=== PATIENT | female | born 1995 | race Caucasian/White ===

== ENCOUNTER 2020-12-10 12:04 | Outpatient (CLI) | payer OTHER ==
[2020-12-11 13:41] LABS: HIV AG/AB 4TH GEN NON-REACTIVE (NON-REACTIVE)
== END 2020-12-10 12:05 | disposition home or self-care (01) ==
LOC: LAB 12:04
PROVIDERS: ATTEND Advanced Practice Midwife
DX: Z34.90 Encounter for supervision of normal pregnancy, unspecified, unspecified trimester (principal)
CPT/HCPCS: 36415; 84443; 86787; 87389

== ENCOUNTER 2021-01-01 07:00 | Outpatient (CLI) | payer OTHER | END 2021-01-01 23:59 | disposition home or self-care (01) | LOC: LAB.R 07:00 | PROVIDERS: ATTEND Nurse Practitioner Obstetrics & Gynecology | DX: Z36.85 Encounter for antenatal screening for Streptococcus B (principal) | CPT/HCPCS: 87797 ==

== ENCOUNTER 2021-01-23 17:10 | Outpatient (CLI) | payer OTHER ==
[2021-01-23 17:57] VITALS: BP 138/88
--- NOTE | 2021-01-24 10:02 | PROVIDER PROGRESS NOTE ---
- HPI Chief Complaint: Labor Check Current : Current EDU 01/27/21 Gestation 39 Weeks and 3 Days 1 Para 0 Vital Signs Temperature 36.5 C 01/23/21 17:45 Heart Rate 94 01/23/21 17:45 Respiratory Rate 18 01/23/21 17:45 Blood Pressure 138/88 H 01/23/21 17:45 Temperature 36.5 C 01/23/21 17:45 Heart Rate 94 01/23/21 17:45 Respiratory Rate 18 01/23/21 17:45 Blood Pressure 138/88 H 01/23/21 17:45 O2 Saturation - Procedures OB Procedure Performed: NST Diagnosis/Indication for NST: Other NST Procedure: NST Procedure Start Date 01/23/21 Start Time 17:15 Stop Time 18:10 Vibroacoustic Stimulation Used No Patient States Movement Yes Service Date of procedure: 01/23/21 - Plan Plan: Jessica presents to [facility] with c/o contractions every 5-7 minutes lasting 30 seconds for the past 20 hours. She states the pain is mostly in her back. She denies vaginal bleeding or leakage of fluid. She reports +FM. She is coping well with contractions but did not sleep well at all last night. O: FHR baseline 135 however initially it was difficult to assess secondary to prolonged accelerations. Prolonged monitoring initiated and FHR baseline settled to 135 with moderate variability, + accels, no decels Contractions palpate mild every 7 minutes with soft resting tone. SVE 1/90/-2, posterior. Vertex. NST performed 01/23/2021 NST read 01/23/2021 NST reactive. FHR baseline 135, moderate variability, + accels, no decels A: 25yo @ 39.3wks gestation Prodromal labor FHR Category I P: Pt given option to proceed with elective IOL, be discharged home with precautions, or given IV medication to rest while inpatient. Pt elects to take OTC unisom at home and return if contractions increase in frequency and intensity or if she experiences other warning s/sx. Pt verbalized understanding and agrees to above plan. She denies further questions or concerns at this time. Has emergency contact information. FINAL DIAGNOSIS: False labor >37wks gestation
== END 2021-01-23 18:20 | disposition home or self-care (01) ==
LOC: WFO 17:10 → FBP 17:12 → WFO 18:20
PROVIDERS: ATTEND Nurse Practitioner Obstetrics & Gynecology
DX: O47.1 False labor at or after 37 completed weeks of gestation (principal); Z3A.39 39 weeks gestation of pregnancy
CPT/HCPCS: 99213

== ENCOUNTER 2021-01-24 18:31 | Inpatient (IN) | payer OTHER ==
[2021-01-24] MEDS ORDERED: TRANEXAMIC ACID IN NACL 1,000 MG/100 ML BAG IV PRN (19:13)
[2021-01-24] MEDS ORDERED: CARBOPROST TROMETHAMINE 250 MCG/ML AMP IM PRN (19:13)
[2021-01-24] MEDS ORDERED: LIDOCAINE-MPF 1% 30 ML VIAL ID PRN (19:13)
[2021-01-24] MEDS ORDERED: METHYLERGONOVINE 0.2 MG/ML VIAL IM PRN (19:13)
[2021-01-24] MEDS ORDERED: SODIUM CHLORIDE FLUSH 0.9% 10 ML SYRINGE IVP PRN (19:13)
[2021-01-24] MEDS ORDERED: miSOPROStoL 200 MCG TABLET BC PRN (19:13)
[2021-01-24] MEDS ORDERED: OXYTOCIN/SODIUM CHLORIDE 500 ML IV PRN (19:13)
[2021-01-24] MEDS ORDERED: OXYTOCIN 10 UNIT/ML VIAL IM PRN (19:13)
--- NOTE | 2021-01-24 19:20 | HISTORY & PHYSICAL EXAMINATION ---
Admit History - Visit Reason Visit Reason: Contractions - : 1 Parity: 0 Premature: 0 Ectopic: 0 : 0 Care: positive: [facility] Risk/History: positive: None Complications This : positive: None Smoking Status: Never smoker - Mother's Labs Mother's Blood Type: positive: A Mother's RH: positive: Positive GBS: positive: Group B Step Negative Rubella Status: positive: Immune Review of Systems - Constitutional Constitutional: reports: Fatigue. denies: Chills, Malaise - Eyes Eyes: denies: Blurred vision, Spots in vision, Dipolpia - Cardiovascular Cariovascular: denies: Irregular heart rate, Chest pain, Edema - Respiratory Respiratory: denies: Cough, SOB at rest - Gastrointestinal Gastrointestinal: denies: Change in bowel habits - Musculoskeletal Musculoskeletal: reports: Back pain - Integumentary Integumentary: denies: Rash, Pruritis - Neurological Neurological: denies: Headache Physical - Abdominal Exam Vital Signs: Temp Pulse Resp BP Pulse Ox 36.7 C 85 18 138/94 H 99 01/24/21 18:41 01/24/21 18:41 01/24/21 18:41 01/24/21 18:41 01/24/21 18:41 Contraction Intensity: positive: Mild to moderate Uterine Resting Tone: positive: Soft - Monitoring Heart Rate Baseline: 135 Strip Review: positive: Category I - Presentation Presentation: positive: Vertex - Vaginal Exam Membranes: positive: Membranes intact Dilation (in cm): 3 Effacement (%): 95 Station: positive: -2 Cervical Position: positive: Midposition - Speculum Exam Speculum Exam Performed: positive: No Plan for Labor - Plan For Labor I expect patient to be DC'd or transferred within 96 hours.: Yes Plan for Labor: HPI: This 25yo @ 39.4wks gestation by LMP c/w 13.0wks U/S presents to [facility] with c/o irregular contractions which have increased in intensity and duration over the past 24 hours. She states she has been unable to sleep for 36 hours and she is feeling very exhausted. She wishes to have her labor augmented and she requests an epidural for pain management. Her Greg is supportive at the bedside. She has been a patient of [facility] since her transfer of care form the [facility] and [place], [place]. They had struggled with infertility but discovered they were already at their first visit at the fertility clinic. She is also noted to have mild hypothyroidism for which she takes 50mcg Synthroid daily. Her labs throughout have remained WNL. Medications: PNV, Synthroid 50mcg daily Allergies: Sulfa (severe), penicillin (moderate) PMHx: Infertility, PCOS, hypothyroidsim, anxiety/depression Surgical Hx: none Social Hx: Never smoker. No ETOH or IVDA. She is a college student. Greg is [employer]. Family Hx: no significant course: Initial U/S: at 13.0wks c/w LMP for LATOSHA 01/27/2021 Hypothyroidism- TSH - 1.87, redraw at 33.1wks 1.37 A pos/Rubella immune VZV- non immune vax pp Gentic testing: Serum AFP neg FAS: Posterior placenta. 3VC, ELVIRA wnl. *marginal corn insertion*, efw 33% Glucola- 130 Flu: 08/30/2020 TDAP : 12/10/2020 GBS at 36.2 weeks - neg HSV: denies self and partner Breast pump Rx : already obtained MOD: . Greg. Baby Girl- Nina. Desires epidural pp contraception: condoms. Has hx PCOS and would like to go without hormones. Then [facility] Jul. PAP: 06/17/19- nilm Physical exam: Normocephalic, atraumatic Heart RRR w/o M/G/R Lungs CTAB Abdomen gravid, soft, nontender EFW 3800g SVE 3/95/-2, midposition. Vertex. Membranes intact. Bilateral LE's trace edema bilaterally Mood is good however appears tired. Assessment: 25yo @ 39.4wks gestation by LMP c/w 13.0wk U/S Early labor GBS neg FHR Category I Plan: Admit for active management. AROM for augmentation of labor with next SVE. Notify anesthesia for placement of epidural. Continuous monitoring. Repeat SVE 4 hours after AROM and if unchanged will initiate pitocin for augmentation of labor. Anticipate . Pt, partner and labor RN at the bedside all verbalize understanding and agree to above plan. They deny further questions or concerns at this time.
[2021-01-24] MEDS ORDERED: ZOLPIDEM 5 MG TABLET PO PRN (19:38)
[2021-01-24 20:01] LABS: BASOPHILS % (AUTO) 0.3 %; EOSINOPHILS # (AUTO) 0.1 10^3/uL (0.0-0.7); EOSINOPHILS % (AUTO) 0.4 %; HGB - HEMOGLOBIN 12.9 g/dL (12.0-16.0); LYMPHOCYTES # (AUTO) 2.5 10^3/uL (1.5-3.5); LYMPHOCYTES % (AUTO) 18.9 %; MEAN CORPUSCULAR HEMOGLOBIN 27.9 pg (27.0-31.0); MEAN CORPUSCULAR HGB CONC 32.3 g/dL (32.0-36.0); MEAN CORPUSCULAR VOLUME 86.4 fL (81.0-99.0); MONOCYTES # (AUTO) 0.8 10^3/uL (0.0-1.0); MONOCYTES % (AUTO) 6.3 %; NEUTROPHILS # (AUTO) 9.6 10^3/uL (1.5-6.6); NEUTROPHILS % (AUTO) 73.3 %; PLT - PLATELET COUNT 217 10^3/uL (130-450); RED BLOOD COUNT 4.63 10^6/uL (4.20-5.40); RED CELL DISTRIBUTION WIDTH 14.6 % (12.0-15.0); WHITE BLOOD COUNT 13.1 x10^3/uL (4.8-10.8)
[2021-01-24] MEDS: LACTATED RINGERS 1,000 ML IV SCH ×2 (20:09→22:36)
[2021-01-24] MEDS ORDERED: fentaNYL 100 MCG/2 ML VIAL ONE (20:21)
[2021-01-24] MEDS ORDERED: BUPIVACAINE 0.25% PF 10 ML VIAL ONE (20:21)
[2021-01-24] MEDS ORDERED: ROPIVACAINE 0.2% 200 MG/100 ML BAG EP ONE (20:21)
[2021-01-24] MEDS ORDERED: diphenhydrAMINE INJ 50 MG/ML VIAL IVP PRN (21:07)
[2021-01-24] MEDS ORDERED: METOCLOPRAMIDE 10 MG/2 ML VIAL IVP PRN (21:07)
[2021-01-24] MEDS ORDERED: ONDANSETRON 4 MG/2 ML VIAL IVP PRN (21:07)
[2021-01-24] MEDS ORDERED: NALBUPHINE 10 MG/ML AMP IVP PRN (21:07)
[2021-01-24] MEDS ORDERED: ROPIVACAINE 0.2% 200 MG/100 ML BAG EP PRN (21:07)
[2021-01-24] MEDS ORDERED: NALOXONE 0.4 MG/ML VIAL IVP PRN (21:07)
[2021-01-24] MEDS ORDERED: ePHEDrine 50 MG/ML VIAL IVP PRN (21:07)
--- NOTE | 2021-01-24 21:07 | ANESTHESIA ---
Pre-Anesthesia VS, & Labs - Diagnosis active labor - Procedure labor epidural Vital Signs: Temp Pulse Resp BP Pulse Ox 37.0 C 80 16 127/77 99 01/24/21 19:42 01/24/21 19:42 01/24/21 19:42 01/24/21 19:42 01/24/21 18:41 Height: 5 ft 5 in Weight (kg): 72.575 kg Body Mass Index: 26.6 BMI Classification: Overweight - Is Patient ?: Yes - Lab Results Current Lab Results: Laboratory Tests 01/24/21 19:45: Blood Type A POSITIVE, Antibody Screen NEGATIVE 01/24/21 19:45: WBC 13.1 H, RBC 4.63, Hgb 12.9, Hct 40.0, MCV 86.4, MCH 27.9, MCHC 32.3, RDW 14.6, Plt Count 217, MPV 12.0 H, Neut # (Auto) 9.6 H, Lymph # (Auto) 2.5, Marshall # (Auto) 0.8, Eos # (Auto) 0.1, Baso # (Auto) 0.0, Absolute Nucleated RBC 0.00, Nucleated RBC % 0.0 Lab results reviewed: Yes Fish Bones: 01/24/21 19:45 Home Medications and Allergies Active Medications Carboprost Tromethamine (Carboprost Tromethamine 250 Mcg/Ml Amp) 250 mcg IM Q15M PRN PRN Reason: Step 4: Hemorrhage protocol Stop: 01/29/21 19:13 Lactated Ringer's (Lr) 1,000 mls @ 150 mls/hr IV .Q6H40M ANALY Last Admin: 01/24/21 20:09 Dose: 150 mls/hr Documented by: Oxytocin/Sodium Chloride (Pitocin/Sodium Chloride) 500 mls @ 999 mls/hr IV PRN PRN; Protocol PRN Reason: POST- HEMORR PREVENTION Stop: 01/29/21 19:13 Tranexamic Acid (Tranexamic 1,000 Mg/100ml-Nacl) 1,000 mg in 100 mls @ 600 mls/hr IV .ONCE PRN PRN Reason: EBL >1200mL and within 3hr Stop: 01/29/21 19:13 Lidocaine HCl (Lidocaine-Mpf 1% 30 Ml Vial) 30 ml ID .ONCE PRN PRN Reason: PERINEAL REPAIR Stop: 01/29/21 19:13 Methylergonovine Maleate (Methylergonovine 0.2 Mg/Ml Vial) 0.2 mg IM .ONCE PRN PRN Reason: Step 2: Hemorrhage protocol Stop: 01/29/21 19:13 Misoprostol (Misoprostol 200 Mcg Tablet) 800 mcg BC .ONCE PRN PRN Reason: Step 3: Hemorrhage protocol Stop: 01/29/21 19:13 Ondansetron HCl (Ondansetron 4 Mg/2 Ml Vial) 4 mg IVP Q4H PRN PRN Reason: Nausea / Vomiting Oxytocin (Oxytocin 10 Unit/Ml Vial) 10 unit IM .ONCE PRN PRN Reason: Step one: If no IV access Stop: 01/29/21 19:13 Sodium Chloride (Sodium Chloride Flush 0.9% 10 Ml Syringe) 10 ml IVP PRN PRN PRN Reason: NEEDED PER PROVIDER ORDERS Sodium Chloride (Sodium Chloride Flush 0.9% 10 Ml Syringe) 10 ml IVP 0100,0900,1700 ANALY Zolpidem Tartrate (Zolpidem 5 Mg Tablet) 5 mg PO QPM PRN PRN Reason: Insomnia Allergies/Adverse Reactions: Allergies Allergy/AdvReac Type Severity Reaction Status Date / Time Penicillins Allergy Unknown Unknown Verified 01/24/21 19:53 Sulfa (Sulfonamide Allergy Unknown Verified 01/24/21 19:54 Antibiotics) Anes History & Medical History - Anesthetic History Anesthesia Complications: reports: No previous complications Family history of Anesthesia Complications: Denies Family history of Malignant Hyperthermia: Denies - Medical History Smoking Status: Never smoker - Obstetrical History : 1 Parity: 0 Events: reports: None Complications: reports: None Exam General: Alert, Oriented x3, Cooperative, No acute distress Plan Anesthesia Type: Epidural Consent for Procedure(s) Verified and Reviewed: Yes Code Status: Attempt Resuscitation ASA classification: 2-Mild systemic disease Is this case an emergency?: No
[2021-01-25] MEDS ORDERED: SODIUM CHLORIDE FLUSH 0.9% 10 ML SYRINGE IVP SCH (01:00)
[2021-01-25] MEDS: ONDANSETRON 4 MG/2 ML VIAL IVP PRN ×2 (01:21→05:33)
--- NOTE | 2021-01-25 02:58 | PROVIDER PROGRESS NOTE ---
Labor Progress Note - Uterine Monitoring Uterine Monitoring Mode: positive: External toco Contraction Frequency (min/apart): 3-8 Contraction Intensity: positive: Strong Uterine Resting Tone: positive: Soft - Monitoring Monitor Mode: positive: External ultrasound Heart Rate Baseline: 135 Heart Rate Variability: positive: Moderate (6-25 bmp) Accelerations: positive: Present, 15x15 Decelerations: positive: Early, Variable, Intermittent (<50% x20 min) Strip Review: positive: Category II - Vaginal Exam Dilation (in cm): complete Effacement (%): 100 Station: -1 - Labor Progress Note Labor Progress Note/Additional Text: S: Patient feeling completely numb with epidural in place and states she is not feeling any discomfort at all. She has been able to get some sleep but is still tired. She is feeling intermittently shaky with epidural and states this has not been helpful when trying to sleep. Her partner is supportive at the bedside. O: SVE c/c/-1, Vertex. FHR baseline 135, moderate variability, rare variable deceleration Contractions q 3-8 min with soft resting tone. A: 25yo @ 39.5wks gestation Active labor Complete dilatation x 2 hours with irregular contraction pattern and frequency FHR Category II - overall reassuring P: Continuous monitoring. Pitocin initiated to improve contraction pattern and frequency Anticipate .
[2021-01-25] MEDS ORDERED: OXYTOCIN/SODIUM CHLORIDE 500 ML IV SCH (03:00)
[2021-01-25] MEDS: LACTATED RINGERS 1,000 ML IV SCH (05:33)
[2021-01-25] MEDS ORDERED: LIDOCAINE 2%-EPI 1:100000 20 ML MDV ONE (05:40)
[2021-01-25] MEDS ORDERED: fentaNYL 100 MCG/2 ML VIAL ONE (05:40)
--- NOTE | 2021-01-25 06:06 | CONSULTATION NOTE ---
Consultation Report: Called by RN for rheatent having back pain/pressure. Patient just received pump intermittent bolus of Ropivacaine 0.2% 10mL prior to my arrival on OB floor. Level checked, patient could distinguish cold at level of iliac crests. Bolus of Lidocaine 2% with 1:100k epi 4 mL and Fentanyl 100 mcg given. pain improved slightly after this bolus. Another 2 mL of Lidocaine 2% with 1:100k epi given. Patient comfortable.
[2021-01-25] MEDS ORDERED: HYDROCORTISONE 1% CREAM 28 GM TUBE PR PRN (07:14)
[2021-01-25] MEDS ORDERED: WITCH HAZEL/GLYCERIN 1 PAD TOP PRN (07:14)
--- NOTE | 2021-01-25 07:14 | DELIVERY NOTE ---
Delivery Note - Labor Labor: positive: Augmented by ARM, Augmented by oxytocin - Delivery Method Delivery Method: positive: Vacuum assist - Presentation Presentation: positive: Vertex - Nuchal Cord Nuchal Cord: positive: None - Amniotic Fluid Description Amniotic Fluid Description: positive: Light meconium - Episiotomy Type Episiotomy Type: positive: None - Laceration Laceration: positive: None - Delivery Outcome Delivery Outcome: positive: Livebirth - [place]: positive: Bulb syringe, Stimulated, [place] used, Warmer used sex: positive: Female - Cord Cord: positive: 3 vessels - Placenta Placenta: positive: Intact, Spontaneous - Estimated Blood Loss Estimated Blood Loss (in cc): 200 - Post Delivery Events Post Delivery Events: positive: No post delivery events - Delivery Comments (Free Text/Narrative) Delivery Comments (Free Text/Narrative): note: This 25yo @ 39.5wks gestation by LMP c/w 13.0wk U/S presented to [facility] in early labor on 01/24/2021 at approximately 1830. Cervix was 3/95/-2, midposition, vertex. FHR pattern demonstrated category I pattern throughout the first stage of labor. AROM occurred at 1956 and was noted to be a large amount of clear fluid. Epidural placed per maternal request. Pt progressed to c/c/-1 at 0046. Due to station and maternal fatigue she labored down for approximately 2 hours. Her contractions decreased in frequency during that time and secondarily pitocin was initiated for augmentation for a maximum infusion rate of 10mU/mL. Onset of pushing at 0315. Pt began to feel uncomfortable with epidural and secondarily pt was unable to push effectively. Anesthesia was notified to provide her additional pain relief. Following administration of additional pain relief the contractions again began to decrease in frequency once again. braider tender physician notified at 0540. Reassured of status and station +1 with adequate maternal pushing effort. At approximately 0621 FH R decreased to 90bpm with slow and brief return to baseline. Moderate variability was maintained. braider tender physician notified to present to evaluate the appropriateness of a vacuum assisted delivery. Surgical team notified to be on standby in case of need for operative delivery. RT asked to present to bedside. (See delivery note from trust evaluation supervisor physician - delivery 01/25/2021 at 0653). Following delivery the cord was doubly clamped and cut by trust evaluation supervisor physician and the infant was moved to infant warmer for evaluation. [employer] Technician then resumed maternal care. Pitocin administered via IV for hemostasis. Fundal massage and gentle cord traction applied for active management of the third stage. Placenta delivered spontaneously and intact at 0656. EBL 200mL. Fourth stage: Uterine fundus firm and there is no excessive bleeding. The perineum, vagina, and cervix were inspected and found to be intact. Apgars were 2/4/7 at 1, 5, and 10 minutes respectively. Following resuscitative measures the was brought to maternal chest and skin to skin contact was initiated. then initiated. Family bonding well. Both mother and baby were left in stable condition.
--- NOTE | 2021-01-25 07:25 | DELIVERY NOTE ---
Delivery Note - Delivery Comments (Free Text/Narrative) Delivery Comments (Free Text/Narrative): VACUUM ASSIST: I came to delivery at the request of STEFF Calixto to evaluate and assist 2nd stage. She had given me a heads-up earlier due to the prolonged pushing and variable declerations with pushing. Upon my arrival FHT were in the 80s and recurrent decels were seen on the strip. STEFF had discussed indications of vacuum with patient, had broken down the bed, and had emptied the bladder. I reviewed risk of bleeding on the brain and the eye with family, discussed poss risk of failure with need to do emergency . JUAN LUIS presentation confirmed. Rigid mushroom kiwi vacuum applied to the vertex, brought to the green zone, patient pushed, steady traction on the vacuum applied, good progressive descent seen. She valsalva'ed multiple times over one contraction. One popoff happened when the patient was nearly delivered. The vaccum was not replaced and she delivered a few seconds later JUAN LUIS. Total vacuum time was about 45sec. No nuchal. Shoulders and body easily delivered. Baby placed on mom's abdomen for initial warm/dry/stimulate. Cord left pulsating for 20sec, baby had poor tone, and so cord was cut x2 and cut so that baby could be brought to the warmer. No lacerations seen. STEFF Calixto completed the rest of the delivery.
[2021-01-25] MEDS ORDERED: LACTATED RINGERS 1,000 ML IV SCH (08:00)
[2021-01-25] MEDS: IBUPROFEN 800 MG TABLET PO SCH ×3 (11:46→23:41)
[2021-01-25] MEDS: ACETAMINOPHEN 500 MG TABLET PO SCH ×2 (11:47→20:31)
[2021-01-26] MEDS: ACETAMINOPHEN 500 MG TABLET PO SCH ×3 (04:45→19:42)
[2021-01-26] MEDS: IBUPROFEN 800 MG TABLET PO SCH ×3 (08:20→19:42)
--- NOTE | 2021-01-26 11:26 | PROVIDER PROGRESS NOTE ---
Subjective - Subjective Subjective: S: Bonding well with baby. with little difficulty other than she is noting some discomfort on the right side throughout the feed. She has been using nipple ointment and hydrogel pads. Discussed importance of breaking an improper latch rather than continuing a feed through the discomfort. Bleeding decreased and is light. Pain is well controlled with oral medications with the exception of pain at her tailbone. Feels she has to be careful how she sits or when she adjusts positions. Does not feel that it is getting worse and is manageable at this time. Experienced urinary incontinence on several occasions yesterday and last night. She denies pain or burning with urination and states this has seemed to get a little better after timed voiding. She is able to feel the sensation of needing to go but when she stands up she has difficulty waiting to void before she gets to the bathroom. States swelling at her perineum is better but continues to be sore. O: BP 133/83, RR 19, HR 72, T 36.9 Heart RRR w/o M/G/R, lungs CTAB, abdomen soft and nontender with fundus firm at U-1, perineum intact with mild edema, light lochia rubra. Bilateral LE's no edema. A: 25yo -->P1 PPD#1 s/p VAVD of term female infant Perineum intact Urinary incontinence P: Continue routine pp care and medications. Work with nurse today Continue timed voiding but space voiding times to every 2-3 hours. Anticipate discharge home tomorrow Pt and partner verbalized understanding and agree to above plan. They deny further questions or concerns at this time. Objective - Vital Signs/Intake & Output Vital Signs: Vital Signs x48h Temp Pulse Resp BP Pulse Ox 01/26/21 08:13 36.9 C 72 19 133/83 H 100 01/26/21 04:48 36.5 C 82 17 114/81 H Intake & Output: Intake & Output 01/23/21 01/24/21 01/25/21 01/26/21 23:59 23:59 23:59 23:59 Intake Total 367.5 2720 340 Output Total 2050 650 Balance 367.5 670 -310 - Lab Results Fish Bones: 01/24/21 19:45
[2021-01-26] MEDS: DOCUSATE SODIUM 100 MG CAPSULE PO SCH (19:42)
[2021-01-27] MEDS: IBUPROFEN 800 MG TABLET PO SCH ×2 (04:16→09:53)
[2021-01-27] MEDS: ACETAMINOPHEN 500 MG TABLET PO SCH ×2 (04:16→12:57)
[2021-01-27] MEDS: DOCUSATE SODIUM 100 MG CAPSULE PO SCH (09:55)
--- NOTE | 2021-01-27 10:51 | PROVIDER PROGRESS NOTE ---
Subjective - Subjective Subjective: FINAL PROGRESS NOTE: S: Bonding well with baby. without difficulty. Pain well controlled with oral medications. Reports urinary incontinence has improved however did have a small amount of leaking when she stool up to void the last time. She reports she has experienced a morning headache the past two mornings. She thought it was related to lack of caffeine intake and fatigue. Her BP was slightly elevated (140s/80s) after her vital signs were taken when she returned from being up to the bathroom. She has admittedly not been drinking a lot of water. She plans to take a nap prior to being discharged home. O: BP 127/84, T 37.0, HR 78, RR 16 Heart RRR w/o M/G/R, lungs CTAB, abdomen soft and nontender with fundus firm at U-2, perineum intact, light lochia rubra, bilateral LE's no edema A: 25yo -->P1 PPD#2 s/p VAVD viable female P: Repeat BP after nap and if elevated with run PIH labs Discharge home today if BP normotensive and headache has resolved. Reviewed warning s/sx and when to present. Encouraged continuation of ibuprofen and tylenol for pain PRN Advised continuation of PNV while . Pt verbalized understanding and agrees to above plan. She denies further questions or concerns at this time. Objective - Vital Signs/Intake & Output Vital Signs: Vital Signs x48h Temp Pulse Resp BP Pulse Ox 01/27/21 04:00 37.0 C 78 16 127/84 H 99 Intake & Output: Intake & Output 01/24/21 01/25/21 01/26/21 01/27/21 23:59 23:59 23:59 23:59 Intake Total 367.5 2720 340 Output Total 0 650 Balance 367.5 670 -310 - Lab Results Fish Bones: 01/24/21 19:45 Other Labs: Lab Results x24hrs 01/26/21 01/24/21 Range/Units 06:40 14:46 Coronavirus (PCR) NEGATIVE Blood Type Recheck A POSITIVE
--- NOTE | 2021-01-27 11:38 | Discharge Plan ---
Discharge Plan Problem Reviewed?: No Disposition: Home, Self Care Condition: Good Diet: Regular Activity Restrictions: No Restrictions Shower Restrictions: No Driving Restrictions: No Weight Bearing: Full Weight No Smoking: If you smoke, Please STOP! Call for help.
[2021-01-27 12:36] VITALS: BP 145/90
[2021-01-27 12:53] LABS: BASOPHILS % (AUTO) 0.3 %; EOSINOPHILS # (AUTO) 0.2 10^3/uL (0.0-0.7); EOSINOPHILS % (AUTO) 1.3 %; HCT - HEMATOCRIT 38.7 % (37.0-47.0); HGB - HEMOGLOBIN 12.5 g/dL (12.0-16.0); LYMPHOCYTES # (AUTO) 2.5 10^3/uL (1.5-3.5); MEAN CORPUSCULAR HGB CONC 32.3 g/dL (32.0-36.0); MEAN CORPUSCULAR VOLUME 86.6 fL (81.0-99.0); MEAN PLATELET VOLUME 10.9 fL (7.9-10.8); MONOCYTES # (AUTO) 0.7 10^3/uL (0.0-1.0); NEUTROPHILS # (AUTO) 10.2 10^3/uL (1.5-6.6); NEUTROPHILS % (AUTO) 74.9 %; PLT - PLATELET COUNT 213 10^3/uL (130-450); RED BLOOD COUNT 4.47 10^6/uL (4.20-5.40); RED CELL DISTRIBUTION WIDTH 14.6 % (12.0-15.0); WHITE BLOOD COUNT 13.6 x10^3/uL (4.8-10.8)
[2021-01-27 13:04] LABS: ALBUMIN 3.1 g/dL (3.2-5.5); ALBUMIN/GLOBULIN RATIO 0.9 (1.0-2.2); BILIRUBIN,TOTAL 0.5 mg/dL (0.2-1.0); CALCIUM 8.8 mg/dL (8.5-10.3); CREATININE 0.6 mg/dL (0.4-1.0); POTASSIUM 3.6 mmol/L (3.5-5.0); TOTAL PROTEIN 6.5 g/dL (6.7-8.2)
[2021-01-27 13:27] LABS: CREATININE,URINE 39.9 mg/dL; TOTAL PROTEIN,URINE TIMED < 6 mg/dL
--- NOTE | 2021-01-27 15:10 | Labor Flowsheet ---
Labor Flowsheet Datetime Report Generated by CPN: 01/27/2021 15:09 Datetime: 01/27/2021 12:25 VITAL SIGNS NBP Sys/Mae/Mean (mmHg): 145 : 90 : 103 Pulse: 60 Datetime: 01/27/2021 09:44 SpO2 (%): 98 Datetime: 01/25/2021 10:30 Stage of : Recovery Respirations: 18 Temperature (C): 36.8 Temperature Route: Oral Datetime: 01/25/2021 07:21 Membranes Ruptured Date/Time: 01/24/2021 19:56 Datetime: 01/25/2021 07:03 Anesthesia Comments: pump stopped Datetime: 01/25/2021 06:52 Stage 2 Comments: error. Vac on at 0651 Datetime: 01/25/2021 06:51 Vacuum: On Datetime: 01/25/2021 06:50 ASSESSMENT A Monitor Mode: External US FHR Baseline Rate : 120 Variability: Minimal - Undetectable to <=5 bpm Decelerations: Variable (Annotations: variable decels with overshoot accelerations ; FHR from [id number] 5) Actions for Decelerations: Side to Side (Annotations: Dr. Metz here preparing to apply v accum) Datetime: 01/25/2021 06:49 LaborFlag: Labor Datetime: 01/25/2021 06:47 Pushing Progress: with Pushing Datetime: 01/25/2021 06:46 MEDICATIONS Pitocin (milliunits): Decreased to @ 5mu COMMUNICATION Communication: Call/Page Placed to Provider Communication Comments: Dr. Lashay called by Pete Calixto to come in for vaccum Datetime: 01/25/2021 06:45 UTERINE ACTIVITY Monitor Mode: External Frequency (min): 2-3 Quality: Moderate Patient Position/Activity: Right Lateral Datetime: 01/25/2021 06:36 Category: Category II Comments: decels with each push, pt pushing in R tilt position Datetime: 01/25/2021 06:18 Pitocin Checklist: At Least 1 Acceleration of 15 bpm x 15 Seconds in 30 Minutes or Adequate Variabi lity; No More than 1 Late Deceleration Occurred in Past 30 Minutes; No More than 2 Variable Decelerat ions > 60 Seconds in Duration and decreasing >60 bpm in 30 minutes; No More than 5 Uterine Contractio ns in 10 Minutes for any 20 Minute Interval; Uterus Palpates Soft between Contractions Accelerations: 15X15 Pain Presence: None/Denies Pushing Position: Pushing with Contractions Datetime: 01/25/2021 05:57 Pain Type: Pressure Pain Location: Back Pain Assessment Comments: still having some back pain but it is better than it was Datetime: 01/25/2021 05:42 Anesthesia Level Check: T12 Datetime: 01/25/2021 05:32 Antiemetics/Antacids: Zofran (mg) @ 4mg IVP Datetime: 01/25/2021 05:27 Pattern: Normal: <= 5 Contractions in 10 Minutes Resting Tone (Palpate): Relaxed Datetime: 01/25/2021 04:54 Vital Sign Comments: MHR increases to 170's with pushes, BL 110-120 Duration (sec): 80-100 Datetime: 01/25/2021 04:42 I/O Interventions: [place] Discontinued Patient Care Comments: 300ml conc urine Datetime: 01/25/2021 04:19 PATIENT CARE IV/Blood Work: IV Infusing per Order; New IV Bag Hung Datetime: 01/25/2021 03:34 STAGE 2 Pushing: Coached on Pushing Datetime: 01/25/2021 03:05 Monitor Interventions for UA: [place] Adjusted Datetime: 01/25/2021 02:41 Provider Reviewed Strip: Yes Notification Reason: Status Update; Status; Labor Status Datetime: 01/25/2021 02:32 Station: -1 Datetime: 01/25/2021 01:11 Strip Reviewed by: A. Marily, CNM Datetime: 01/25/2021 00:51 Provider Notified (Name): A. Marily, CNM Datetime: 01/25/2021 00:47 Monitor Interventions for FHR: Ultrasound Adjusted Datetime: 01/25/2021 00:46 VAGINAL EXAM Dilatation (cm): 10.0 Effacement (%): 100 Exam by: A. Florinda, RNC Vaginal Bleeding: Normal Show Datetime: 01/24/2021 23:29 Contraction Comments: spaced out Datetime: 01/24/2021 22:39 Analgesics/Sedatives: Ambien (mg) @ 5mg Hygiene: Underpad Changed Datetime: 01/24/2021 22:00 PAIN Pain Scale: 0 Datetime: 01/24/2021 20:46 Pain Relief Measures: Epidural Given Datetime: 01/24/2021 20:39 Epidural Procedure: Loading Dose Datetime: 01/24/2021 20:28 PROCEDURE TIME OUT Procedure Type: epidural Procedure Verify: Correct Patient Identity; Correct Side and Site are Marked; Accurate Procedure Co nsent Form; Agreement on Procedure to be Done; Correct Patient Position ANESTHESIA Anesthesia Plans: Epidural Epidural Positioning: Sitting Datetime: 01/24/2021 19:56 Membrane Status: Ruptured Membranes Rupture Method: Artificial Amniotic Fluid Color: Clear Amniotic Fluid Amount: Moderate Amniotic Fluid Odor: Normal Cervix, Consistency: Soft Cervix, Position: Anterior MATERNAL ASSESSMENT Level of Consciousness: Alert DTR's/Clonus: DTRs 2+ Headache: Denies Breath Sounds, Left: Clear and Equal Breath Sounds, Right: Clear and Equal Nausea/Vomiting: Denies RUQ Epigastric Pain: Denies
--- NOTE | 2021-01-27 21:07 | DISCHARGE SUMMARY ---
Physician: TRAN Dee DATE OF ADMISSION: 01/24/2021 DATE OF DISCHARGE: 01/27/2021 DIAGNOSES ON ADMISSION 1. A 25-year-old, G1, P0 at 39.4 weeks gestation. 2. Early labor. 3. Group B Streptococcus negative. DIAGNOSES ON DISCHARGE 1. A 25-year-old, G1, P1-0-0-1, status post spontaneous vaginal delivery on 01/25/2021. 2. Urinary incontinence - improved. 3. Headache - improved. HISTORY OF PRESENT ILLNESS: She is a patient of [facility], who presented on 2020 with complaints of contractions. Cervix was 3 cm dilated, 95% effaced, -2 station, mid position and vertex. Artificial rupture of membranes occurred at 1956 hours and was noted to be a large amou nt of clear fluid. Epidural placed per maternal request. The patient was only allowed to labor down and following the labor down time, she began to push spontaneously and effectively. Anesthesia was notified to redose her epidural due to additional pain, which prevented her from pushing effectively. Pitocin was initiated for labor augmentation. heart rate decreased to 90 beats per minute wi th slow return to baseline. Moderate variability was maintained; however, on-call physician was noti fied to present to evaluate for the appropriateness of a vacuum-assisted vaginal delivery. On-call ph ysician, Dr. Metz, presented and performed a vacuum-assisted vaginal delivery on 01/25/2021 at 0 653 hours. Apgars were 2, 4 and 7 at 1, 5 and 10 minutes respectively. EBL 200 mL. The perineum, vag bridger and cervix were inspected and noted to be intact. She has been doing well in her course. She is ambulating and tolerating a regular diet. She initially was urinating with ease; however, experiencing some mild urinary incontinence, which bonds s improved with timed urination. She had a small amount of leakage this morning, but denies pain and feels that this is improving overall. Her pain is well controlled with oral medications. She will be discharged home today on day #2 with instructions to continue taking her vitam in while and to continue taking ibuprofen and Tylenol [id number] as needed for pa in management. She intends to follow up with myself at [facility] in one week for r outine visit or sooner if needed. She has been given precautions to call if she has any w orsening fevers, chills, abdominal pain, increased bleeding or foul-smelling vaginal lochia. TD: 01/27/2021 21:05
== END 2021-01-27 15:00 | disposition home or self-care (01) | DRG 807 ==
LOC: WFO 18:31 → FBP 18:32 → WFO 19:12 → FBP 19:13
PROVIDERS: ADMIT Nurse Practitioner Obstetrics & Gynecology; ATTEND Nurse Practitioner Obstetrics & Gynecology
PROC: 10907ZC Drainage of Amniotic Fluid, Therapeutic from Products of Conception, Via Natural or Artificial Opening (ICD-10-PCS; principal; 2021-01-24)
PROC: 10D07Z6 Extraction of Products of Conception, Vacuum, Via Natural or Artificial Opening (ICD-10-PCS; 2021-01-25)
DX: O76 Abnormality in fetal heart rate and rhythm complicating labor and delivery (principal); Z37.0 Single live birth; Z3A.39 39 weeks gestation of pregnancy; O90.89 Other complications of the puerperium, not elsewhere classified; R32 Unspecified urinary incontinence; R51.9 Headache, unspecified; O77.0 Labor and delivery complicated by meconium in amniotic fluid
CPT/HCPCS: 36415; 80053; 82570; 84156; 85025; 86850; 86900; 86901; 87635; 99213; A9270; J7120

== ENCOUNTER → 2021-07-11 | Outpatient (CLI) | payer OTHER ==
[2021-07-11 12:52] LABS: THYROID STIMULATING HORMONE < 0.08 uIU/mL (0.34-5.60)
[2021-07-11 14:23] LABS: FREE T4 (FREE THYROXINE) 1.01 ng/dL (0.58-1.64)
== END ==
LOC: LAB.WCP 08:57
PROVIDERS: ATTEND Nurse Practitioner Obstetrics & Gynecology
DX: E03.9 Hypothyroidism, unspecified (principal)
CPT/HCPCS: 36415; 84439; 84443